=== PATIENT | male | born 1945 | race Caucasian/White ===

== ENCOUNTER 2022-08-15 06:05 | Day surgery (SDC) | payer MEDICARE ==
[2022-08-11 13:40] LABS: INR 2.97 (0.85-1.15); PROTHROMBIN TIME 30.4 SEC (9.6-11.6)
[2022-08-11 13:42] LABS: PARTIAL THROMBOPLASTIN TIME 34.5 SEC (26.3-35.5)
[2022-08-11 13:53] LABS: CREATININE 1.5 mg/dL (0.5-1.5); POTASSIUM 4.9 mmol/L (3.5-5.1)
[2022-08-11 14:00] LABS: BASOPHILS % (AUTO) 0.6 % (0.0-5.0); EOSINOPHILS % (AUTO) 1.1 % (0.0-8.0); HEMATOCRIT 38.7 % (42-54); LYMPHOCYTES % (AUTO) 14.6 % (21.0-51.0); MEAN CORPUSCULAR HEMOGLOBIN 29.3 pg (27.0-33.0); MEAN CORPUSCULAR HGB CONC 33.1 g/dL (32.0-36.0); MEAN CORPUSCULAR VOLUME 88.6 fL (79-99); MONOCYTES % (AUTO) 8.3 % (3.0-13.0); NEUTROPHILS % (AUTO) 74.1 % (40.0-77.0); PLATELET COUNT (AUTO) 62 K/uL (130-400); RED BLOOD CELL COUNT(AUTO) 4.37 MIL/uL (4.50-6.20); RED CELL DISTRIBUTION WIDTH 13.7 % (11.0-15.5); WHITE BLOOD COUNT (AUTO) 8.4 K/uL (4.8-10.8)
[2022-08-14 08:26] VITALS: BP 142/70
[~2022-08-15] VITALS: Ht 185.4 cm; Wt 110.0 kg
[~2022-08-15 06:05] MED LIST: 0.9%NACL 1000ML 1,000 ML IV SCH; AMIO200T68 PO; METO50TA18 PO; WARF-57 PO
== END 2022-08-15 08:40 | disposition home or self-care (01) ==
LOC: DAH 06:05 → EDSTATUS 08:00 → DAH 08:40
PROVIDERS: ATTEND Student in an Organized Health Care Education/Training Program
DX: I48.0 Paroxysmal atrial fibrillation (principal); Z20.822 Contact with and (suspected) exposure to COVID-19; I10 Essential (primary) hypertension; E78.5 Hyperlipidemia, unspecified; E11.8 Type 2 diabetes mellitus with unspecified complications; F17.200 Nicotine dependence, unspecified, uncomplicated; Z98.890 Other specified postprocedural states; Z82.49 Family history of ischemic heart disease and other diseases of the circulatory system; Z83.3 Family history of diabetes mellitus; Z79.01 Long term (current) use of anticoagulants; Z53.8 Procedure and treatment not carried out for other reasons
CPT/HCPCS: 87426; 80048; 85025; 85610; 85730; 36415; 93005; A4663; A4606

== ENCOUNTER → 2023-05-14 | Outpatient (CLI) | payer MEDICARE ==
[~2023-05-14] MED LIST changes: -0.9%NACL 1000ML 1,000 ML IV SCH
[2023-05-14 12:11] LABS: BASOPHILS # (AUTO) 0.07 K/uL (0.00-0.20); EOSINOPHILS # (AUTO) 0.21 K/uL (0.00-0.70); HEMATOCRIT 41.9 % (42-54); IMMATURE GRANULOCYTE ABSOLUTE 0.09 K/uL (0-1); LYMPHOCYTES # (AUTO) 1.4 K/uL (1.0-4.8); LYMPHOCYTES % (AUTO) 19.6 % (21.0-51.0); MEAN CORPUSCULAR HGB CONC 33.4 g/dL (32.0-36.0); MEAN CORPUSCULAR VOLUME 86.9 fL (79-99); MONOCYTES # (AUTO) 0.8 K/uL (0.1-1.0); MONOCYTES % (AUTO) 11.2 % (3.0-13.0); NEUTROPHILS # (AUTO) 4.5 K/uL (1.8-7.7); NEUTROPHILS % (AUTO) 63.9 % (40.0-77.0); PLATELET COUNT (AUTO) 136 K/uL (130-400); RED BLOOD CELL COUNT(AUTO) 4.82 MIL/uL (4.50-6.20); WHITE BLOOD COUNT (AUTO) 7.1 K/uL (4.8-10.8)
[2023-05-14 12:40] LABS: HEMOGLOBIN A1C 5.9 % (4.0-6.0)
[2023-05-14 12:42] LABS: ALBUMIN 3.8 g/dL (3.5-5.0); BILIRUBIN,TOTAL 0.4 mg/dL (0.2-1.0); CREATININE 1.4 mg/dL (0.5-1.5); POTASSIUM 3.7 mmol/L (3.5-5.1); THYROID STIMULATING HORMONE 1.26 uIU/mL (0.36-3.74); TOTAL PROTEIN, SERUM 6.8 g/dL (6.0-8.3)
== END | disposition home or self-care (01) ==
LOC: LAB 10:50
PROVIDERS: ATTEND Student in an Organized Health Care Education/Training Program
DX: I10 Essential (primary) hypertension (principal); Z79.899 Other long term (current) drug therapy
CPT/HCPCS: 36415; 80053; 80061; 83036; 84443; 85025

== ENCOUNTER → 2024-06-24 | Outpatient (CLI) | payer MEDICARE ==
[2024-06-24 12:21] LABS: BASOPHILS # (AUTO) 0.06 K/uL (0.00-0.20); EOSINOPHILS # (AUTO) 0.13 K/uL (0.00-0.70); EOSINOPHILS % (AUTO) 2.2 % (0.0-8.0); HEMATOCRIT 44.1 % (42-54); IMMATURE GRANULOCYTE ABSOLUTE 0.06 K/uL (0-1); LYMPHOCYTES % (AUTO) 17.5 % (21.0-51.0); MEAN CORPUSCULAR HEMOGLOBIN 28.5 pg (27.0-33.0); MEAN CORPUSCULAR HGB CONC 32.4 g/dL (32.0-36.0); MEAN CORPUSCULAR VOLUME 87.8 fL (79-99); MONOCYTES # (AUTO) 0.6 K/uL (0.1-1.0); MONOCYTES % (AUTO) 10.4 % (3.0-13.0); NEUTROPHILS % (AUTO) 67.9 % (40.0-77.0); PLATELET COUNT (AUTO) 159 K/uL (130-400); RED BLOOD CELL COUNT(AUTO) 5.02 MIL/uL (4.50-6.20); RED CELL DISTRIBUTION WIDTH 13.4 % (11.0-15.5)
[2024-06-24 12:55] LABS: BILIRUBIN,TOTAL 0.5 mg/dL (0.2-1.0); CREATININE 1.6 mg/dL (0.5-1.3); POTASSIUM 4.9 mmol/L (3.5-5.1); THYROID STIMULATING HORMONE 1.57 uIU/mL (0.36-3.74)
== END | disposition home or self-care (01) ==
LOC: LAB 08:34
PROVIDERS: ATTEND Student in an Organized Health Care Education/Training Program
DX: I10 Essential (primary) hypertension (principal); E11.8 Type 2 diabetes mellitus with unspecified complications; I48.0 Paroxysmal atrial fibrillation; Z79.01 Long term (current) use of anticoagulants
CPT/HCPCS: 36415; 80053; 80061; 84443; 85025

== ENCOUNTER → 2024-10-21 | Outpatient (CLI) | payer OTHER ==
[2024-10-21 12:58] LABS: INR 1.87 (0.85-1.15); PROTHROMBIN TIME 19.7 SEC (9.6-11.6)
== END | disposition home or self-care (01) ==
LOC: LAB 10:28
PROVIDERS: ATTEND Student in an Organized Health Care Education/Training Program
DX: I48.0 Paroxysmal atrial fibrillation (principal); Z79.01 Long term (current) use of anticoagulants
CPT/HCPCS: 36415; 85610

== ENCOUNTER → 2024-10-30 | Outpatient (CLI) | payer OTHER ==
[2024-10-30 13:04] LABS: INR 1.94 (0.85-1.15); PROTHROMBIN TIME 20.3 SEC (9.6-11.6)
== END | disposition home or self-care (01) ==
LOC: LAB 08:34
PROVIDERS: ATTEND Student in an Organized Health Care Education/Training Program
DX: I48.0 Paroxysmal atrial fibrillation (principal); Z79.01 Long term (current) use of anticoagulants
CPT/HCPCS: 36415; 85610

== ENCOUNTER → 2024-11-06 | Outpatient (CLI) | payer OTHER ==
[2024-11-06 12:41] LABS: INR 1.69 (0.85-1.15)
== END | disposition home or self-care (01) ==
LOC: LAB 08:23
PROVIDERS: ATTEND Student in an Organized Health Care Education/Training Program
DX: I48.91 Unspecified atrial fibrillation (principal); Z79.01 Long term (current) use of anticoagulants
CPT/HCPCS: 36415; 85610

== ENCOUNTER → 2024-11-13 | Outpatient (CLI) | payer OTHER ==
[2024-11-13 12:24] LABS: INR 2.03 (0.85-1.15); PROTHROMBIN TIME 21.2 SEC (9.6-11.6)
== END | disposition home or self-care (01) ==
LOC: LAB 08:37
PROVIDERS: ATTEND Student in an Organized Health Care Education/Training Program
DX: Z51.81 Encounter for therapeutic drug level monitoring (principal); Z79.01 Long term (current) use of anticoagulants
CPT/HCPCS: 36415; 85610

== ENCOUNTER → 2024-11-20 | Outpatient (CLI) | payer OTHER ==
[2024-11-20 12:55] LABS: INR 3.14 (0.85-1.15); PROTHROMBIN TIME 31.4 SEC (9.6-11.6)
== END | disposition home or self-care (01) ==
LOC: LAB 08:26
PROVIDERS: ATTEND Student in an Organized Health Care Education/Training Program
DX: Z51.81 Encounter for therapeutic drug level monitoring (principal); Z79.01 Long term (current) use of anticoagulants
CPT/HCPCS: 36415; 85610

== ENCOUNTER → 2024-11-27 | Outpatient (CLI) | payer OTHER ==
[2024-11-27 12:59] LABS: INR 2.18 (0.85-1.15); PROTHROMBIN TIME 22.6 SEC (9.6-11.6)
== END | disposition home or self-care (01) ==
LOC: LAB 08:23
PROVIDERS: ATTEND Student in an Organized Health Care Education/Training Program
DX: Z51.81 Encounter for therapeutic drug level monitoring (principal); Z79.01 Long term (current) use of anticoagulants
CPT/HCPCS: 36415; 85610; 85730

== ENCOUNTER → 2024-12-15 | Outpatient (CLI) | payer OTHER ==
[2024-12-15 12:45] LABS: INR 1.66 (0.85-1.15); PROTHROMBIN TIME 16.7 SEC (9.6-11.6)
[2024-12-15 12:46] LABS: PARTIAL THROMBOPLASTIN TIME 31.3 SEC (26.3-35.5)
== END | disposition home or self-care (01) ==
LOC: LAB 08:37
PROVIDERS: ATTEND Student in an Organized Health Care Education/Training Program
DX: Z51.81 Encounter for therapeutic drug level monitoring (principal); I48.91 Unspecified atrial fibrillation; Z79.01 Long term (current) use of anticoagulants
CPT/HCPCS: 36415; 85610; 85730

== ENCOUNTER → 2024-12-30 | Outpatient (CLI) | payer OTHER ==
[2024-12-30 12:26] LABS: INR 1.51 (0.85-1.15); PROTHROMBIN TIME 15.4 SEC (9.6-11.6)
== END | disposition home or self-care (01) ==
LOC: LAB 08:09
PROVIDERS: ATTEND Student in an Organized Health Care Education/Training Program
DX: I48.91 Unspecified atrial fibrillation (principal); Z79.01 Long term (current) use of anticoagulants
CPT/HCPCS: 36415; 85610